=== PATIENT | male | born 1960 | race Caucasian/White ===

== ENCOUNTER 2022-12-29 19:24 | Emergency (ER) | payer BC ==
[~2022-12-29] VITALS: Ht 175.2 cm; Wt 110.2 kg
[2022-12-29 20:02] LABS: BASO % 0.6 % (0.0-1.0); EOS # 0.2 10*3/uL (0.0-0.4); EOS % 2.4 % (1.0-4.0); HEMATOCRIT 46.6 % (42.0-52.0); LYMPH # 1.7 10*3/uL (1.3-4.4); LYMPH % 27.7 % (27.0-41.0); MEAN CORPUSCULAR HGB 29.2 pg (27.0-31.0); MEAN CORPUSCULAR HGB CONC 32.4 g/dl (33.0-37.0); MEAN PLATELET VOLUME 9.4 fl (9.6-12.3); MONO # 0.4 10*3/uL (0.1-1.0); MONO % 5.8 % (3.0-9.0); NEUT # 3.9 10*3/uL (2.3-7.9); NEUT % 63.2 % (47.0-73.0); PLATELET COUNT AUTOMATED 224 10*3/uL (130-400); RED BLOOD COUNT 5.18 10*6/uL (4.50-5.90); WHITE BLOOD COUNT 6.2 10*3/uL (4.8-10.8)
[2022-12-29 20:14] LABS: ACT PARTIAL THROMBO TIME 22.2 SECONDS (20.0-32.1)
[2022-12-29 20:17] LABS: ALKALINE PHOSPHATASE 51 U/L (46-116); BUN 13 mg/dl (9-23); CHLORIDE 100 mmol/L (98-107); LIPASE 35 U/L (12-53); SGPT/ALT 39 U/L (10-49)
== END 2022-12-29 23:09 | disposition home or self-care (01) ==
LOC: ED 19:24
PROVIDERS: Physician Assistant
DX: R55 Syncope and collapse (principal)